=== PATIENT | male | born 1980 ===

== ENCOUNTER 2022-11-30 11:43 | Outpatient (CLI) | payer OTHER | END 2022-11-30 11:49 | disposition home or self-care (01) | LOC: SONOGRAMA 11:43 | PROVIDERS: ATTEND Pathology Anatomic Pathology & Clinical Pathology | DX: D34 Benign neoplasm of thyroid gland (principal); E06.3 Autoimmune thyroiditis; E04.9 Nontoxic goiter, unspecified; E03.8 Other specified hypothyroidism; E04.1 Nontoxic single thyroid nodule ==